=== PATIENT | male | born 1950 | race Caucasian/White ===

== ENCOUNTER → 2019-07-20 10:14 | Outpatient (BNVA) | payer MEDICARE, SELFPAY | PROVIDERS: Family Provider Family Medicine; PCP Family Medicine; Visit Provider Urology | DX: R39.9 Unspecified symptoms and signs involving the genitourinary system (principal); Z12.5 Encounter for screening for malignant neoplasm of prostate; N39.9 Disorder of urinary system, unspecified; N20.0 Calculus of kidney; R35.8 Other polyuria; N40.0 Benign prostatic hyperplasia without lower urinary tract symptoms | CPT/HCPCS: 81001 ==

== ENCOUNTER 2020-07-20 08:27 | Outpatient (CLI) | payer MEDICARE, SELFPAY ==
--- NOTE | 2020-07-20 08:15 | XR_ITS ---
WS: [id number] Exam: XR KUB [id number] Date/Time of Exam: 07/20/2020 8:15 AM Reason For Exam: RENAL STONE 3 mm calcification again noted superimposing the lower pole left kidney. No obvious calcifications se en in the region of the right kidney. Nonspecific pelvic calcifications are noted. Moderate amount of stool noted in the colon particularly the right colon. Visualized organ margins are intact. XR/XR KUB [id number] IMPRESSION: 1. Stable 3 mm calcification superimposing the left kidney. Nonspecific pelvic calcifications. 2. No acute abdominal process. Constipation.
== END 2020-07-20 08:28 | disposition home or self-care (01) ==
LOC: RAD 08:31
PROVIDERS: PCP Family Medicine; Visit Provider Urology
DX: N20.0 Calculus of kidney (principal)
CPT/HCPCS: 74018; 81003

== ENCOUNTER 2021-07-17 09:34 | Outpatient (CLI) | payer MEDICARE, SELFPAY ==
--- NOTE | 2021-07-17 09:30 | XR_ITS ---
WS: [id number] Exam: XR KUB [id number] Date/Time of Exam: 07/17/2021 9:30 AM Reason For Exam: RENAL CALCULUS Comparison 07/20/2020. No bowel obstruction or free air. No sign of organ enlargement. Small calcification superimpose the l eft kidney and may represent renal calculi. Nonspecific pelvic calcifications. Regional bony elements are intact. Moderate amount stool in the colon. XR/XR KUB [id number] IMPRESSION: 1. Several small calcification superimpose the left kidney and apparently repre sent known renal stones. 2. No acute abdominal finding.
== END 2021-07-17 09:35 | disposition home or self-care (01) ==
PROVIDERS: PCP Nurse Practitioner Family; Visit Provider Urology
DX: N20.0 Calculus of kidney (principal)
CPT/HCPCS: 74018

== ENCOUNTER 2021-09-19 | Outpatient (CLI) | payer MEDICARE, SELFPAY | END 2021-09-19 00:01 | disposition home or self-care (01) | LOC: RAD 10-02 09:04 | PROVIDERS: PCP Nurse Practitioner Family; Visit Provider Urology | DX: N20.0 Calculus of kidney (principal) | CPT/HCPCS: 81003; G0103 ==

== ENCOUNTER 2022-09-18 08:35 | Outpatient (CLI) | payer MEDICARE, SELFPAY ==
--- NOTE | 2022-09-18 08:45 | XR_ITS ---
WS: [id number] Exam: XR KUB [id number] Date/Time of Exam: 09/18/2022 8:47 AM Reason For Exam: STONES Comparison 07/17/2021. No bowel obstruction or free air. Several small calcification superimpose the lower pole left kidney and apparently represent known renal stones. No sign of organ enlargement. Nonspecific small bilatera l pelvic calcifications. XR/XR KUB [id number] IMPRESSION: 1. No acute abdominal finding. 2. Small calcification superimpose the left renal silhouette and apparently rep resent known renal stones.
== END 2022-09-18 08:36 | disposition home or self-care (01) ==
LOC: RAD 08:39
PROVIDERS: PCP Nurse Practitioner Family; Visit Provider Urology
DX: N20.0 Calculus of kidney (principal)
CPT/HCPCS: 51798; 74018; 81003; 99213